=== PATIENT | female | born 1980 | race Caucasian/White ===

== ENCOUNTER → 2020-09-25 | Outpatient (CLI) | payer OTHER | END | disposition home or self-care (01) | LOC: MA 09-05 09:00 | PROVIDERS: ATTEND Family Medicine | PROC: BH02ZZZ Plain Radiography of Bilateral Breasts (ICD-10-PCS; principal; 2020-09-25) | DX: R92.2 Inconclusive mammogram (principal) | CPT/HCPCS: 77066 ==